=== PATIENT | male | born 1965 | race Two or more races ===

== ENCOUNTER → 2024-04-08 | Outpatient (CLI) | payer OTHER, BC, SELFPAY ==
[2024-04-08 12:28] LABS: Ferritin 44 ng/mL (10.5-307.3)
[2024-04-15 06:45] LABS: Helicobacter pylori Ag, Stool* NOT DETECTED (NOT DETECTED)
== END | disposition home or self-care (01) ==
LOC: COPL 10:55
PROVIDERS: PCP Family Medicine; Referring Provider Internal Medicine Gastroenterology; Visit Provider Internal Medicine Gastroenterology
DX: R63.4 Abnormal weight loss (principal)
CPT/HCPCS: 36415; 82728; 87338

== ENCOUNTER → 2024-04-15 | Outpatient (CLI) | payer OTHER, BC, SELFPAY ==
--- NOTE | 2024-04-15 10:55 | XR_ITS ---
Examination: CT abdomen without intravenous contrast. Coronal 2-D reconstructions. Sagittal 2-D reconstructions. Date and time of exam:April 15, 2024 11:11 AM INDICATIONS: 23 pound weight loss in the last 5 months with right upper abdominal pain and constipation one month, history acute diverticulitis CTDI: vol (mGy): 16.5 DLP: (mGycm): 667 Technique: Axial images of the abdomen have been obtained, 3 mm slice thickness, without intravenous contrast 2-D sagittal coronal reconstructions Low dose protocols were performed. One or more of the following dose reduction techniques were used; automated exposure control, adjustment of the mA and/or KV according to patient size, use of iterative reconstruction technique. Findings: No visualized liver or splenic lesion Absent gallbladder No peripancreatic edema Normal adrenal glands Moderate bilateral renal parenchymal scar formation, no hydronephrosis Aorta normal size Normal appendix Colonic diverticulosis, no diverticulitis noted, these images do not include the pelvis Advanced degenerative disc disease L5-S1 IMPRESSION: Moderate bilateral renal parenchymal scar formation, no hydronephrosis or renal calculi Normal appendix Colonic diverticulosis, no diverticulitis
== END | disposition home or self-care (01) ==
LOC: CCTX 10:51
PROVIDERS: PCP Family Medicine; Referring Provider Family Medicine; Visit Provider Family Medicine
DX: N28.89 Other specified disorders of kidney and ureter (principal); K57.30 Diverticulosis of large intestine without perforation or abscess without bleeding
CPT/HCPCS: 74150

== ENCOUNTER → 2024-09-08 | Outpatient (CLI) | payer BC, OTHER, SELFPAY ==
[2024-09-08 11:21] LABS: Basophils % (Auto) 0 % (0-2.5); Eosinophils # (Auto) 0.1 Thou/mm3 (0.0-0.5); Eosinophils % (Auto) 2 % (0-10); Hematocrit 47.1 % (41.0-53.0); Hemoglobin 16.2 g/dL (13.5-16.0); Immature Granulocytes % (Auto) 0 % (0-0); Immature Granulocytes Auto 0.01 Thou/mm3 (0.00-0.00); Lymphocytes # (Auto) 1.1 Thou/mm3 (1.0-4.8); Lymphocytes % (Auto) 20 % (10-50); Mean Corpuscular HGB Conc 34.4 g/dl (31.0-37.0); Mean Corpuscular Hemoglobin 28.7 pg (25.0-35.0); Mean Corpuscular Volume 83 fL (80-100); Monocytes # (Auto) 0.8 Thou/mm3 (0.0-0.8); Monocytes % (Auto) 14 % (0-12); Neutrophils # (Auto) 3.4 Thou/mm3 (1.8-7.7); Neutrophils % (Auto) 63 % (37-80); Nucleated Red Blood Cell % 0 /100 WBC (0); Platelet Count 222 Thou/mm3 (140-440); RDW Standard Deviation 40.2 fL (35.1-43.9); Red Blood Count 5.65 Miln/mm3 (4.50-5.90); White Blood Count 5.4 Thou/mm3 (3.8-10.6)
[2024-09-08 11:39] LABS: Albumin, Serum 4.8 gm/dL (3.4-4.8); Anion Gap 9 (7-16); BUN/Creatinine Ratio 18 Ratio (12-20); Blood Urea Nitrogen 18 mg/dL (9-23); Calcium 8.8 mg/dL (8.3-10.6); Calcium (Corrected) 8.8 mg/dL (8.5-10.1); Carbon Dioxide 30.5 mMol/L (20.0-31.0); Chloride 101 mMol/L (98-107); Glucose 115 mg/dL (74-106); Osmolality,Calculated 282 (275-295); Phosphorous 2.8 mg/dL (2.4-5.1); Potassium 3.8 mMol/L (3.4-5.1); Sodium 140 mMol/L (136-145); eGFR > 60 See Note
== END | disposition home or self-care (01) ==
PROVIDERS: PCP Family Medicine; Referring Provider Family Medicine; Visit Provider Family Medicine
DX: R10.0 Acute abdomen (principal)
CPT/HCPCS: 36415; 80069; 85025

== ENCOUNTER → 2024-10-01 | Outpatient (CLI) | payer BC, OTHER, SELFPAY ==
[2024-10-03 17:50] LABS: PSA, Free 0.17 ng/mL; PSA, Total 0.7 ng/mL (< OR = 4.0)
== END | disposition home or self-care (01) ==
LOC: COPL 10:09
PROVIDERS: PCP Family Medicine; Referring Provider Surgery; Visit Provider Surgery
DX: N40.1 Benign prostatic hyperplasia with lower urinary tract symptoms (principal); N52.9 Male erectile dysfunction, unspecified
CPT/HCPCS: 36415; 84153; 84154

== ENCOUNTER → 2024-10-22 | Outpatient (CLI) | payer BC, OTHER, SELFPAY ==
[2024-11-02 06:54] LABS: Testosterone, Free,Dialysis 39.5 pg/mL (35.0-155.0); Testosterone, Total, Dialysis 297 ng/dL (250-1100)
== END | disposition home or self-care (01) ==
LOC: COPL 10:05
PROVIDERS: PCP Family Medicine; Referring Provider Surgery; Visit Provider Surgery
DX: N52.9 Male erectile dysfunction, unspecified (principal)
CPT/HCPCS: 36415; 84402; 84403